=== PATIENT | female | born 1985 | race Caucasian/White ===

== ENCOUNTER 2019-02-17 05:34 | Day surgery (SDC) | payer MEDICAID ==
[2019-02-15 16:15] VITALS: Ht 152.4 cm; Wt 77.0 kg
[~2019-02-17] VITALS: Ht 152.4 cm; Wt 77.0 kg
[2019-02-17] VITALS (10 sets, daily range): BP systolic 96–118; BP diastolic 58–76; PULSE 70–80; RESP 18–22
--- NOTE | 2019-02-17 01:05 | PREOPHP ---
DATE OF ADMISSION: 02/17/2019 HISTORY OF PRESENT ILLNESS: The patient is a 33-year-old 3, para 3, desires permanent surgic al sterilization. PAST MEDICAL HISTORY: None. MEDICATIONS: None. PAST SURGICAL HISTORY: None. OBSTETRIC HISTORY: x3 vaginal deliveries. GYNECOLOGIC HISTORY: 11, regular 3 to 4 days. Denies any sexually transmitted disease. Sexually ac tive with 1 partner. SOCIAL HISTORY: Denies any smoking, drugs, or alcohol. FAMILY HISTORY: None. REVIEW OF SYSTEMS: All within normal except history of present illness. PHYSICAL EXAMINATION: HEENT: Within normal. LUNGS: CTA bilateral. CARDIOVASCULAR: S1, S2, regular rhythm. ABDOMEN: Soft, nontender, negative distention. EXTREMITIES: Negative edema. No calf tenderness. VAGINAL: Normal external genitalia. Cervix negative CMT, negative lesions. Adnexa negative mass, n ontender bilateral. Fundus within normal limits. ASSESSMENT: Multiparity, desires permanent surgical sterilization. PLAN: Consent for laparoscopic bilateral tubal sterilization. Risks, benefits, and alternatives exp lained. All questions were answered. Dictated By: ZHANNA LLOYD/CINTHIA Conf#: [id number] DID#: [id number]
[2019-02-17] MEDS ORDERED: ALBU8.5H8 INH (06:47)
--- NOTE | 2019-02-17 07:01 | PREAC ---
Date/Time of Note Date/Time of Note DATE: 02/17/19 TIME: 06:59 Anesthesia Eval and Record Evaluation Time Pre-Procedure Interview DATE: 02/17/19 TIME: 06:59 Age 33 Sex female NPO: 8 hrs Preoperative diagnosis desire for surgical sterilization Planned procedure lap BTL Past Medical History Past Medical History: Includes Pulm: Asthma (average use of Albuterol once a week, symptoms triggered by allergies ) Surgery & Anesthesia Issues No known issue (epidural once for NVSD) Meds Anticoagulation: No Beta Ben within 24 hr: No Reason Beta Ben not given: Pt. not on B-Ben Reported Medications Albuterol Sulfate* (Proair HFA*) 8.5 Gm Hfa.aer.ad, 2 PUFF INH Q6H PRN for WHEEZING AND SOB, #1 INHALER 02/17/19 Meds reviewed: Yes Allergies Coded Allergies: No Known Allergy (Unverified , 02/15/19) Allergies Reviewed: Yes Labs/Studies Labs Reviewed: Reviewed by anesthesiologist Result Diagram: 02/17/19 0620 Laboratory Tests 02/17/19 06:20 test: Negative Pre-procedure Exam Last vitals Vital Signs Date Temp Pulse Resp B/P (MAP) Pulse Ox O2 O2 Flow FiO2 Time Delivery Rate 02/17/19 98.4 70 18 118/76 98 Room Air 06:39 (90) Airway: Adequate mouth opening, Adequate thyromental dist Mallampati: Mallampati II Teeth: Normal Lung: Normal Heart: Normal ASA Physical Status ASA physical status: 2 Emergency: None Planned Anesthetic General/MAC: ETT Planned Pain Management Parenteral pain med, Local by surgeon Pre-operative Attestations Prior to commencing anesthesia and surgery, the patient was re-evaluated, there was verification of: *The patient's identity *The results of appropriate recent lab work and preoperative vital signs *The above evaluation not changing prior to induction *Anesthetic plan, risk benefits, alternative and complications discussed with patient/family; questions answered; patient/family understands, accepts and wishes to proceed. ROXANA KUMARI Feb 17, 2019 07:01
[2019-02-17] MEDS ORDERED: MIDAZOLAM 1 MG/ML 2 ML INJ ONE (07:05)
[2019-02-17] MEDS ORDERED: PROPOFOL 20 ML ONE (07:05)
[2019-02-17] MEDS ORDERED: FENTAnyl 50 MCG/ML VIAL ONE ×2 (07:05→08:57)
[2019-02-17] MEDS ORDERED: LIDOCAINE 2% (SDV) 5 ML INJ ONE (07:05)
[2019-02-17] MEDS ORDERED: ROCURONIUM 50 MG INJ ONE (07:05)
[2019-02-17] MEDS ORDERED: CEFAZOLIN 1 GM INJ ONE (07:06)
[2019-02-17] MEDS ORDERED: BUPIVACAINE 0.5%/EPI (SDV) 30 ML INJ ONE (07:09)
[2019-02-17] MEDS ORDERED: BUPIVACAINE 0.5%/EPI (SDV) 30 ML INJ INJ ONE (07:30)
[2019-02-17] MEDS ORDERED: ONDANSETRON 4 MG INJ ONE (07:39)
[2019-02-17] MEDS ORDERED: METOCLOPRAMIDE 10 MG INJ ONE (07:40)
[2019-02-17] MEDS ORDERED: FAMOTIDINE 20 MG INJ ONE (07:40)
[2019-02-17] MEDS ORDERED: DEXAMETHASONE 4 MG/ML 5 ML INJ ONE (07:40)
[2019-02-17] MEDS ORDERED: SUGAMMADEX SODIUM 200 MG/2 ML VIAL IV ONE (08:09)
[2019-02-17] MEDS ORDERED: MEPERIDINE 25 MG INJ IV PRN (08:30)
[2019-02-17] MEDS ORDERED: OXYCODONE/ACETAMINOPHEN (5/325) TAB PO PRN ×2 (08:30)
[2019-02-17] MEDS ORDERED: FENTAnyl 50 MCG/ML VIAL IV PRN ×2 (08:30)
[2019-02-17] MEDS ORDERED: ONDANSETRON 4 MG INJ IV PRN (08:30)
[2019-02-17] MEDS ORDERED: RACEPINEPHRINE 2.25%(NEB) 0.5 ML AMP HHN ONE (08:30)
[2019-02-17] MEDS ORDERED: ALBUTEROL 0.083% (NEB) 2.5 MG/3 ML AMP HHN PRN (08:30)
[2019-02-17] MEDS ORDERED: ALBUTEROL 0.083% (NEB) 2.5 MG/3 ML AMP ONE (08:33)
[2019-02-17] MEDS ORDERED: ALBUTEROL 0.5% (NEB) 2.5 MG/0.5 ML AMP ONE (08:33)
--- NOTE | 2019-02-17 08:35 | OPPN ---
Date/Time of Note Date/Time of Note DATE: 02/17/19 TIME: 08:33 Operative Report Planned Procedure Procedure date Feb 17, 2019 Procedure(s) laparoscopic bilateral tubal fulguration Performed by see signature line Heavy Equipment Diesel Mechanic: ZHANNA ROSE MD 2nd Heavy Equipment Diesel Mechanic none Pre-procedure diagnosis Multiparity, desires permanent surgical sterilization. [id number] Anesthesia Type: Hdvun2z general Post-Procedure Post-procedure diagnosis same Findings normal uterus tubes and ovaries. Estimated Blood Loss: minimal Specimen(s) none Grafts/Implant(s) none Complication(s) none ZHANNA ROSE MD Feb 17, 2019 08:35
--- NOTE | 2019-02-17 08:35 | PD.PPDC ---
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
--- NOTE | 2019-02-17 08:57 | PAC ---
Date/Time of Note Date/Time of Note DATE: 02/17/19 TIME: 08:57 Post-Anesthesia Notes Post-Anesthesia Note Last documented vital signs Vital Signs Date Temp Pulse Resp B/P (MAP) Pulse Ox O2 O2 Flow FiO2 Time Delivery Rate 02/17/19 73 16 96 21 08:50 02/17/19 98.4 08:48 02/17/19 99/59 (72) Mask 6.0 08:40 Activity: WNL Respiratory function: WNL Cardiovascular function: WNL Mental status: Baseline Pain reasonably controlled: Yes Hydration appropriate: Yes Nausea/Vomiting absent: Yes ROXANA KUMARI Feb 17, 2019 08:57
[2019-02-17] MEDS: FENTAnyl 50 MCG/ML VIAL IV PRN ×2 (09:07→09:13)
--- NOTE | 2019-02-17 15:18 | OPR ---
DATE OF OPERATION: 02/17/2019 PREOPERATIVE DIAGNOSES: 1. Multiparity. 2. Desires permanent surgical sterilization. POSTOPERATIVE DIAGNOSES: 1. Multiparity. 2. Desires permanent surgical sterilization. PROCEDURE: Laparoscopic bilateral tubal fulguration. SURGEON: Lukas Haney MD COOLING MACHINE OPERATOR: None. ANESTHESIA: General. COMPLICATIONS: None. ESTIMATED BLOOD LOSS: Minimal. FINDINGS: Normal uterus, tubes and ovaries. DESCRIPTION OF PROCEDURE: After explaining the risks, benefits and alternatives, the patient had con sent signed in chart. The patient was taken to the operating room where general anesthesia was obtai louis without difficulty. The patient was then examined under anesthesia and found to have a small ant everted uterus with normal adnexa. She was then prepared and draped in normal sterile fashion in vernon guille lithotomy position. A heavy weighted speculum was then placed in the patient's vagina and the an terior lip of the cervix was grasped with a single tooth tenaculum. A HUMI uterine manipulator was t hen advanced into the uterus to provide means to manipulate the uterus. The speculum was then remove d from the vagina. Attention was then turned to the patient's abdomen where a 5 mm skin incision was made in the umbilical fold. The Veress needle was carefully introduced into the peritoneal cavity a t a 45-degree angle while tenting the abdominal wall. Intraperitoneal placement was confirmed by estelle er-filled syringe and drop in intraabdominal pressure with insufflation of CO2 gas. The trocar and s leeve were then advanced without difficulty into the abdomen where intra-abdominal placement was conf irmed by laparoscope. Pneumoperitoneum was obtained with 4 liters of CO2 gas and a 5 mm trocar and s leeve were then advanced without difficulty into the abdomen where intra-abdominal placement was conf irmed by laparoscope. A second trocar and sleeve was made 2 cm above the symphysis pubis in the midl ine. The second trocar and sleeve were then advanced under direct visualization. A survey of the roro sanchez's pelvis and abdomen revealed entirely normal. The right fallopian tube was fulgurated at [facility] iple areas of the ampullary and isthmus areas with good blanching. Similarly, the left fallopian tub e was fulgurated. The instruments were then removed from the patient's abdomen and the incision was repaired with 3-0 Vicryl. The HUMI was then removed from the patient's vagina. No bleeding was note d from the cervix. The patient tolerated procedure well. All counts were correct. The patient was taken to recovery room in stable condition. Dictated By: LUKAS LLOYD/CINTHIA Conf#: [id number] DID#: [id number]
== END 2019-02-17 10:00 | disposition home or self-care (01) ==
LOC: SDS 05:34
PROVIDERS: ATTEND Obstetrics & Gynecology
DX: Z30.2 Encounter for sterilization (principal); J45.998 Other asthma
CPT/HCPCS: 58670; 84702; 85025; 86850; 86900; 86901; 94664; J0690; J1100; J2250; J2405; J2765; J3010; Z7512; Z7610